=== PATIENT | female | born 1965 | race Caucasian/White ===

== ENCOUNTER 2017-09-08 10:46 | Emergency (ER) | payer OTHER, SELFPAY ==
[2017-09-08 11:01] LABS: Absolute Lymphocytes (CBC) 1.3 K/uL (0.7-4.9); Absolute Monocytes 0.6 K/uL (0.1-1.3); Absolute Neutrophil 7.1 K/uL (1.8-8.0); Basophils % 0.4 % (0-1.3); Eosinophils % 1.3 % (0-4.4); Hematocrit 41.9 % (36.0-45.0); Lymphocytes % 13.8 % (15.3-44.8); MCH 28.4 pg (27.0-35.0); MCV 85.5 fL (80-100); MPV 10.4 fL (7.6-11.3); Monocytes % 6.9 % (3.3-12.3)
[2017-09-08 11:17] LABS: Potassium 3.7 mmol/L (3.5-5.1)
[2017-09-08] MEDS ORDERED: KETOROLAC 30 MG/ML INJ ONE (11:37)
[2017-09-08] MEDS ORDERED: CYCLOBENZAPRINE 10 MG TAB ONE (11:37)
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
== END 2017-09-08 13:06 | disposition home or self-care (01) ==
LOC: ER 10:46
DX: S13.4XXA Sprain of ligaments of cervical spine, initial encounter (principal); V49.50XA Passenger injured in collision with unspecified motor vehicles in traffic accident, initial encounter
CPT/HCPCS: 36415; 70450; 71260; 72125; 74177; 80048; 85025; 99285; Q9967